=== PATIENT | female | born 1985 ===

== ENCOUNTER 2017-05-15 11:15 | Inpatient (IN) | payer OTHER ==
[~2017-05-15] VITALS: Ht 172.7 cm; Wt 83.9 kg
[2017-05-25] MEDS ORDERED: PRENATAL FORMU1 EAC1 PO (07:42)
== END 2017-05-27 14:22 | disposition home or self-care (01) | DRG 775 ==
LOC: OB/GYN 05-25 05:22 → LDR 05-25 05:22 → OB/GYN 05-25 20:12
PROC: 0KQM0ZZ Repair Perineum Muscle, Open Approach (ICD-10-PCS; principal; 2017-05-25)
PROC: 10E0XZZ Delivery of Products of Conception, External Approach (ICD-10-PCS; 2017-05-25)
PROC: 4A1HXCZ Monitoring of Products of Conception, Cardiac Rate, External Approach (ICD-10-PCS; 2017-05-25)
PROC: 4A033R1 Measurement of Arterial Saturation, Peripheral, Percutaneous Approach (ICD-10-PCS; 2017-05-25)
DX: O70.1 Second degree perineal laceration during delivery (principal); Z37.0 Single live birth; Z3A.39 39 weeks gestation of pregnancy

== ENCOUNTER 2017-05-19 08:52 | Outpatient (CLI) | payer OTHER | END 2017-05-19 20:47 | disposition home or self-care (01) | LOC: OBS/DEL 08:52 | DX: O47.1 False labor at or after 37 completed weeks of gestation (principal) ==